=== PATIENT | female | born 1990 | race African-American/Black ===

== ENCOUNTER 2019-03-04 09:21 | Emergency (ER) | payer OTHER ==
[~2019-03-04] VITALS: Ht 160 cm; Wt 69.5 kg
[2019-03-04] MEDS ORDERED: PREN29TA4 PO (09:48)
[2019-03-04 10:19] LABS: BASO % 0.1 % (0.0-1.0); EOS # 0.1 10^3/uL (0.0-0.5); EOS % 0.7 % (0.0-3.0); HEMATOCRIT 37.2 % (36.0-47.0); LYMPH # 2.6 10^3/uL (1.5-5.0); LYMPH % 38.3 % (24.0-44.0); MEAN CORPUSCULAR HEMOGLOBIN 30.2 pg (27.0-33.0); MEAN CORPUSCULAR HGB CONC 32.3 g/dl (32.0-36.5); MEAN CORPUSCULAR VOLUME 93.5 fl (80.0-96.0); MONO # 0.5 10^3/uL (0.0-0.8); MONO % 6.8 % (0.0-5.0); NEUTROPHILS # 3.6 10^3/uL (1.5-8.5); NEUTROPHILS % 53.8 % (36.0-66.0); PLATELET COUNT, AUTOMATED 250 10^3/uL (150-450); RED BLOOD COUNT 3.98 10^6/uL (4.00-5.40); WHITE BLOOD COUNT 6.8 10^3/uL (4.0-10.0)
[2019-03-04 10:44] LABS: BLOOD UREA NITROGEN 7 MG/DL (7-18); CALCIUM LEVEL 9.4 MG/DL (8.5-10.1); CARBON DIOXIDE LEVEL 25 MEQ/L (21-32); CHLORIDE LEVEL 107 MEQ/L (98-107); CREATININE FOR GFR 0.71 MG/DL (0.55-1.30); GLOMERULAR FILTRATION RATE > 60.0 (>60); GLUCOSE, FASTING 64 MG/DL (70-100); POTASSIUM SERUM 4.6 MEQ/L (3.5-5.1); SODIUM LEVEL 139 MEQ/L (136-145)
--- NOTE | 2019-03-04 11:23 | REP ---
FIRST TRIMESTER ULTRASOUND: Real-time sonographic evaluation of the gravid uterus is performed utilizing transabdominal technique. There is a single living intrauterine gestation. Estimated gestational age 10 weeks 3 days based on a crown-rump length of 35 mm, EDC 09/27/2019. heart rate is 182 beats per minute. There is no subchorionic hemorrhage. Right ovary is normal. Left ovary demonstrates a cyst which appears anechoic 5.3 x 4.0 x 4.6 cm. There is no torsion bilaterally with duplex Doppler evaluation. Electronically Signed by Walter Negro MD 03/04/2019 12:03 P
[2019-03-04] MEDS ORDERED: MACR100C43 PO (12:03)
[2019-03-04 12:18] LABS: CHLAMYDIA DNA AMPLIFICATION NEGATIVE (NEGATIVE); GC DNA AMPLIFICATION NEGATIVE (NEGATIVE)
[2019-03-04] MEDS ORDERED: ACETAMINOPHEN TAB 650MG DOSE (2X325MG) PO ONE (12:30)
[2019-03-04 12:35] VITALS: BP 110/56
== END 2019-03-04 12:37 | disposition home or self-care (01) ==
LOC: M ED 09:21
DX: O23.41 Unspecified infection of urinary tract in pregnancy, first trimester (principal); Z3A.10 10 weeks gestation of pregnancy

== ENCOUNTER 2019-03-10 10:11 | Emergency (ER) | payer OTHER ==
[~2019-03-10] VITALS: Ht 160 cm; Wt 71.4 kg
[~2019-03-10 10:11] MED LIST: MACR100C43 PO; PREN29TA4 PO
[2019-03-10] MEDS ORDERED: NS 1,000 ML IV ONE (11:15)
[2019-03-10] MEDS ORDERED: ONDANSETRON 4MG/2ML VIAL (J2405) IV ONE (11:15)
[2019-03-10] MEDS ORDERED: ACETAMINOPHEN TAB 650MG DOSE (2X325MG) PO ONE (11:15)
[2019-03-10] MEDS ORDERED: ACET1TAB55 PO (11:17)
[2019-03-10 11:41] LABS: BASO % 0.3 % (0.0-1.0); EOS # 0.1 10^3/uL (0.0-0.5); EOS % 1.7 % (0.0-3.0); HEMATOCRIT 37.7 % (36.0-47.0); HEMOGLOBIN 12.4 g/dl (12.0-15.5); LYMPH # 2.6 10^3/uL (1.5-5.0); LYMPH % 32.7 % (24.0-44.0); MEAN CORPUSCULAR HEMOGLOBIN 30.2 pg (27.0-33.0); MEAN CORPUSCULAR HGB CONC 32.9 g/dl (32.0-36.5); MONO # 0.5 10^3/uL (0.0-0.8); MONO % 6.9 % (0.0-5.0); NEUTROPHILS # 4.6 10^3/uL (1.5-8.5); NEUTROPHILS % 58.1 % (36.0-66.0); PLATELET COUNT, AUTOMATED 237 10^3/uL (150-450); WHITE BLOOD COUNT 7.8 10^3/uL (4.0-10.0)
[2019-03-10 12:39] LABS: ALBUMIN 3.2 GM/DL (3.2-5.2); ALT/SGPT 21 U/L (12-78); BILIRUBIN,DIRECT < 0.1 MG/DL (0.0-0.2); BILIRUBIN,TOTAL 0.3 MG/DL (0.2-1.0); BLOOD UREA NITROGEN 10 MG/DL (7-18); CALCIUM LEVEL 8.8 MG/DL (8.5-10.1); CARBON DIOXIDE LEVEL 25 MEQ/L (21-32); CHLORIDE LEVEL 103 MEQ/L (98-107); CREATININE FOR GFR 0.72 MG/DL (0.55-1.30); GLOMERULAR FILTRATION RATE > 60.0 (>60); GLUCOSE, FASTING 79 MG/DL (70-100); HCG, SERUM QUANTITATIVE 76721 MIU/ML; LIPASE 134 U/L (73-393); POTASSIUM SERUM 4.7 MEQ/L (3.5-5.1); SODIUM LEVEL 136 MEQ/L (136-145); TOTAL PROTEIN 7.4 GM/DL (6.4-8.2)
--- NOTE | 2019-03-10 13:45 | REP ---
FIRST TRIMESTER ULTRASOUND: Real-time sonographic evaluation of the gravid uterus performed. There is a single living intrauterine gestation with an estimated gestational age 11 weeks 3 days based on crown-rump length of 46 mm, EDC 09/26/2019. heart rate 168 beats per minute. There is no subchorionic hemorrhage. Cystic structure of the left ovary measures 4.7 x 3.6 x 4.3 cm. This may represent a prominent corpus luteum. On the study of 03/31/2019, it measured 5.3 x 4.0 x 4.6 cm. There is no torsion of either ovary, blood flow is seen in each ovary with duplex Doppler evaluation. Electronically Signed by Walter Negro MD 03/10/2019 03:53 P
--- NOTE | 2019-03-10 13:47 | REP ---
RENAL ULTRASOUND: Real-time sonographic evaluation of kidneys performed. Kidneys are normal in size and echotexture, right kidney measuring 10.5 x 5.7 x 4.2 cm and left kidney 10.6 x 5.8 x 4.9 cm. There is no hydronephrosis or definite renal stone bilaterally. Urinary bladder is mildly distended and grossly unremarkable. IMPRESSION: No hydronephrosis or nephrolithiasis sonographically. Electronically Signed by Walter Negro MD 03/10/2019 03:53 P
[2019-03-10 14:45] LABS: CHLAMYDIA DNA AMPLIFICATION NEGATIVE (NEGATIVE); GC DNA AMPLIFICATION NEGATIVE (NEGATIVE)
[2019-03-10] MEDS ORDERED: CYCLOBENZAPRINE 5MG TABLET PO ONE (15:15)
[2019-03-10] MEDS ORDERED: CYCL5TAB PO (15:21)
[2019-03-10] MEDS ORDERED: ONDA4TAB6 PO (15:21)
[2019-03-10] MEDS ORDERED: FLAG500T PO (15:21)
[2019-03-10 15:46] VITALS: BP 100/55
== END 2019-03-10 15:53 | disposition home or self-care (01) ==
LOC: M ED 10:11
DX: O23.591 Infection of other part of genital tract in pregnancy, first trimester (principal); N83.202 Unspecified ovarian cyst, left side; O26.891 Other specified pregnancy related conditions, first trimester; N76.0 Acute vaginitis; Z3A.11 11 weeks gestation of pregnancy; O34.81 Maternal care for other abnormalities of pelvic organs, first trimester
CPT/HCPCS: 36415; 76775; 76801; 80048; 80076; 81001; 83690; 84702; 85025; 87210; 87661; 93976; 96361; 96374; 99284; J2405

== ENCOUNTER 2019-04-14 10:12 | Emergency (ER) | payer OTHER ==
[~2019-04-14] VITALS: Ht 160 cm; Wt 74.1 kg
[~2019-04-14 10:12] MED LIST changes: +ACET1TAB55 PO; +CYCL5TAB PO; +FLAG500T PO; +ONDA4TAB6 PO
[2019-04-14 11:13] LABS: BASO % 0.1 % (0.0-1.0); EOS # 0.1 10^3/uL (0.0-0.5); EOS % 0.7 % (0.0-3.0); HEMATOCRIT 34.4 % (36.0-47.0); HEMOGLOBIN 11.5 g/dl (12.0-15.5); LYMPH # 3.2 10^3/uL (1.5-5.0); MEAN CORPUSCULAR HEMOGLOBIN 31.2 pg (27.0-33.0); MEAN CORPUSCULAR HGB CONC 33.4 g/dl (32.0-36.5); MEAN CORPUSCULAR VOLUME 93.2 fl (80.0-96.0); MONO # 0.5 10^3/uL (0.0-0.8); MONO % 5.6 % (0.0-5.0); NEUTROPHILS # 4.7 10^3/uL (1.5-8.5); NEUTROPHILS % 55.1 % (36.0-66.0); PLATELET COUNT, AUTOMATED 217 10^3/uL (150-450); RED BLOOD COUNT 3.69 10^6/uL (4.00-5.40); WHITE BLOOD COUNT 8.5 10^3/uL (4.0-10.0)
[2019-04-14] MEDS ORDERED: NS 1,000 ML IV ONE (11:15)
[2019-04-14] MEDS ORDERED: ACETAMINOPHEN 325 MG TAB PO ONE (11:15)
[2019-04-14] MEDS ORDERED: ONDANSETRON 4MG/2ML VIAL (J2405) IV ONE (11:15)
[2019-04-14 11:58] LABS: ALT/SGPT 14 U/L (12-78); BILIRUBIN,DIRECT < 0.1 MG/DL (0.0-0.2); BILIRUBIN,TOTAL 0.2 MG/DL (0.2-1.0); BLOOD UREA NITROGEN 9 MG/DL (7-18); CALCIUM LEVEL 8.8 MG/DL (8.5-10.1); CARBON DIOXIDE LEVEL 21 MEQ/L (21-32); CHLORIDE LEVEL 107 MEQ/L (98-107); CREATININE FOR GFR 0.69 MG/DL (0.55-1.30); GLOMERULAR FILTRATION RATE > 60.0 (>60); GLUCOSE, FASTING 85 MG/DL (70-100); HCG, SERUM QUANTITATIVE 27999 MIU/ML; LIPASE 114 U/L (73-393); POTASSIUM SERUM 3.7 MEQ/L (3.5-5.1); SODIUM LEVEL 136 MEQ/L (136-145); TOTAL PROTEIN 7.3 GM/DL (6.4-8.2)
[2019-04-14] MEDS ORDERED: KEFL500C17 PO (13:05)
[2019-04-14 13:15] VITALS: BP 121/69
--- NOTE | 2019-04-14 14:00 | REP ---
OB ULTRASOUND: Real-time sonographic evaluation of gravid uterus performed. There is a single living intrauterine gestation, estimated gestational age 16 weeks 2 days based on the first ultrasound, EDC 09/27/2019. Today's measurements indicate appropriate growth. BPD 34 mm = 16 weeks 4 days, 60th percentile HC 123 mm = 16 weeks 1 day, 46th percentile AC 95 mm = 15 weeks 4 days, 31st percentile Femur length 19 mm = 15 weeks 4 days, 28th percentile HC/AC ratio 1.31 is slightly above normal range of 1.09 to 1.29. Estimated weight 131 grams, 20th percentile. Cervix is closed and measures 3.6 cm in length. heart rate 150 beats per minute. position vertex. Placenta is anterior and grade 0 with no previa or abruption. Amniotic fluid within normal limits. Complex cystic structure in the left ovary measures 3.5 x 2.9 x 2.6 cm, which may represent a corpus luteum. There is no torsion. Electronically Signed by Walter Negro MD 04/14/2019 06:06 P
== END 2019-04-14 13:16 | disposition home or self-care (01) ==
LOC: M ED 10:12
DX: O26.899 Other specified pregnancy related conditions, unspecified trimester (principal); M54.5 Low back pain; O23.42 Unspecified infection of urinary tract in pregnancy, second trimester; Z3A.15 15 weeks gestation of pregnancy
CPT/HCPCS: 76811; 80048; 80076; 81001; 83690; 84702; 85025; 87088; 87186; 93976; 96361; 96374; 99284; J2405

== ENCOUNTER 2019-05-01 13:01 | Emergency (ER) | payer OTHER ==
[~2019-05-01] VITALS: Ht 160 cm; Wt 77.6 kg
[~2019-05-01 13:01] MED LIST changes: +KEFL500C17 PO
[2019-05-01] MEDS ORDERED: CLIN150C14 (13:08)
[2019-05-01 14:47] LABS: BASO % 0.1 % (0.0-1.0); EOS # 0.1 10^3/uL (0.0-0.5); EOS % 0.6 % (0.0-3.0); HEMOGLOBIN 10.8 g/dl (12.0-15.5); LYMPH # 2.8 10^3/uL (1.5-5.0); LYMPH % 30.5 % (24.0-44.0); MEAN CORPUSCULAR HEMOGLOBIN 31.2 pg (27.0-33.0); MEAN CORPUSCULAR HGB CONC 32.7 g/dl (32.0-36.5); MEAN CORPUSCULAR VOLUME 95.4 fl (80.0-96.0); MONO # 0.7 10^3/uL (0.0-0.8); MONO % 7.4 % (0.0-5.0); NEUTROPHILS # 5.6 10^3/uL (1.5-8.5); NEUTROPHILS % 60.5 % (36.0-66.0); PLATELET COUNT, AUTOMATED 211 10^3/uL (150-450); RED BLOOD COUNT 3.46 10^6/uL (4.00-5.40); WHITE BLOOD COUNT 9.2 10^3/uL (4.0-10.0)
[2019-05-01 15:16] LABS: BLOOD UREA NITROGEN 6 MG/DL (7-18); CARBON DIOXIDE LEVEL 24 MEQ/L (21-32); CHLORIDE LEVEL 104 MEQ/L (98-107); CREATININE FOR GFR 0.62 MG/DL (0.55-1.30); GLOMERULAR FILTRATION RATE > 60.0 (>60); GLUCOSE, FASTING 73 MG/DL (70-100); POTASSIUM SERUM 4.1 MEQ/L (3.5-5.1); SODIUM LEVEL 134 MEQ/L (136-145)
[2019-05-01] MEDS: ONDANSETRON 4 MG ORAL DISINTEGRATING TAB (Q0162 PER 1MG) PO ONE (16:31)
[2019-05-01] MEDS ORDERED: PROC1AER16 PR (17:08)
[2019-05-01] MEDS ORDERED: ONDA4TAB6 PO (17:08)
--- NOTE | 2019-05-01 17:20 | REP ---
RENAL ULTRASOUND: Real-time sonographic evaluation of the kidneys are performed. The kidneys are normal in size and echotexture, right kidney measuring 10.2 x 5.9 x 4.3 cm and left kidney 10.3 x 3.9 x 5.5 cm. There is no hydronephrosis or renal mass. Urinary bladder is not well distended. The patient is . The heart rate is 157 beats per minute. IMPRESSION: No hydronephrosis. Electronically Signed by Walter Negro MD 05/02/2019 12:40 P
[2019-05-01 17:23] VITALS: BP 122/58
== END 2019-05-01 17:24 | disposition home or self-care (01) ==
LOC: M ED 13:01
DX: O23.42 Unspecified infection of urinary tract in pregnancy, second trimester (principal); O99.612 Diseases of the digestive system complicating pregnancy, second trimester; K64.9 Unspecified hemorrhoids; Z3A.18 18 weeks gestation of pregnancy; Z79.2 Long term (current) use of antibiotics
CPT/HCPCS: 36415; 76775; 80048; 81001; 85025; 99284; Q0162

== ENCOUNTER 2019-05-05 09:16 | Emergency (ER) | payer OTHER ==
[~2019-05-05] VITALS: Ht 160 cm; Wt 75.8 kg
[~2019-05-05 09:16] MED LIST changes: +CLIN150C14; +PROC1AER16 PR
[2019-05-05] MEDS ORDERED: METOCLOPRAMIDE INJ 10MG/2ML VIAL (J2765) IV ONE (11:15)
[2019-05-05] MEDS ORDERED: NS 1,000 ML IV ONE (11:15)
[2019-05-05 11:23] LABS: INFLUENZA A AMPLIFICATION NEGATIVE (NEGATIVE); INFLUENZA B AMPLIFICATION POSITIVE (NEGATIVE)
[2019-05-05 11:43] LABS: BASO % 0.2 % (0.0-1.0); EOS % 0.3 % (0.0-3.0); HEMATOCRIT 32.1 % (36.0-47.0); HEMOGLOBIN 10.5 g/dl (12.0-15.5); LYMPH # 1.5 10^3/uL (1.5-5.0); MEAN CORPUSCULAR HEMOGLOBIN 31.1 pg (27.0-33.0); MEAN CORPUSCULAR HGB CONC 32.7 g/dl (32.0-36.5); MONO # 0.9 10^3/uL (0.0-0.8); MONO % 13.7 % (0.0-5.0); NEUTROPHILS % 61.3 % (36.0-66.0); PLATELET COUNT, AUTOMATED 191 10^3/uL (150-450); RED BLOOD COUNT 3.38 10^6/uL (4.00-5.40); WHITE BLOOD COUNT 6.4 10^3/uL (4.0-10.0)
[2019-05-05 12:23] LABS: ALBUMIN 2.9 GM/DL (3.2-5.2); ALT/SGPT 17 U/L (12-78); BILIRUBIN,DIRECT < 0.1 MG/DL (0.0-0.2); BILIRUBIN,TOTAL 0.7 MG/DL (0.2-1.0); BLOOD UREA NITROGEN 6 MG/DL (7-18); CALCIUM LEVEL 8.5 MG/DL (8.5-10.1); CARBON DIOXIDE LEVEL 26 MEQ/L (21-32); CHLORIDE LEVEL 106 MEQ/L (98-107); CREATININE FOR GFR 0.66 MG/DL (0.55-1.30); GLOMERULAR FILTRATION RATE > 60.0 (>60); GLUCOSE, FASTING 76 MG/DL (70-100); HCG, SERUM QUANTITATIVE 10775 MIU/ML; LIPASE 106 U/L (73-393); POTASSIUM SERUM 3.7 MEQ/L (3.5-5.1); SODIUM LEVEL 137 MEQ/L (136-145); TOTAL PROTEIN 6.6 GM/DL (6.4-8.2)
[2019-05-05 14:20] LABS: APPEARANCE, URINE HAZY (CLEAR); BACTERIA, URINE AUTO 1+ (NEGATIVE); BILIRUBIN, URINE AUTO NEGATIVE (NEGATIVE); BLOOD, URINE BLOOD NEGATIVE (NEGATIVE); COLOR, URINE YELLOW (YELLOW); GLUCOSE, URINE (UA) AUTO NEGATIVE (NEGATIVE); KETONE, URINE AUTO 1+ mg/dL (NEGATIVE); LEUKOCYTE ESTERASE, URINE AUTO NEGATIVE (NEGATIVE); MUCUS, URINE SMALL (NEGATIVE); NITRITE, URINE AUTO NEGATIVE (NEGATIVE); PROTEIN, URINE AUTO NEGATIVE (NEGATIVE); RBC, URINE AUTO 1 /HPF (0-3); SPECIFIC GRAVITY URINE AUTO 1.023 (1.002-1.035); SQUAMOUS EPITHELIAL CELL UR AU 6 /HPF (0-6); WBC, URINE AUTO 1 /HPF (0-3)
[2019-05-05] MEDS ORDERED: OSELTAMIVIR PHOSPHATE 75 MG CAP (TAMIFLU) PO ONE (14:30)
[2019-05-05] MEDS ORDERED: OSEL75CA PO (14:30)
[2019-05-05 14:46] VITALS: BP 130/68
== END 2019-05-05 15:05 | disposition home or self-care (01) ==
LOC: M ED 09:16
DX: O98.512 Other viral diseases complicating pregnancy, second trimester (principal); J10.1 Influenza due to other identified influenza virus with other respiratory manifestations; Z79.899 Other long term (current) drug therapy; Z3A.18 18 weeks gestation of pregnancy
CPT/HCPCS: 80048; 80076; 81001; 83690; 84702; 85025; 87086; 87502; 87880; 96361; 96374; 99284; J2765

== ENCOUNTER 2019-06-28 14:39 | Emergency (ER) | payer OTHER ==
[~2019-06-28] VITALS: Ht 160 cm; Wt 81.8 kg
[~2019-06-28 14:39] MED LIST changes: +OSEL75CA PO
[2019-06-28] MEDS ORDERED: CYCL5TAB PO (14:51)
[2019-06-28] MEDS ORDERED: FERR325T18 PO (14:51)
[2019-06-28] MEDS ORDERED: VITA500T9 PO (14:51)
[2019-06-28] MEDS ORDERED: AMOX500C PO (14:51)
[2019-06-28 16:11] LABS: BASO % 0.2 % (0.0-1.0); EOS # 0.1 10^3/uL (0.0-0.5); EOS % 0.6 % (0.0-3.0); HEMATOCRIT 30.4 % (36.0-47.0); HEMOGLOBIN 10.1 g/dl (12.0-15.5); LYMPH # 2.9 10^3/uL (1.5-5.0); LYMPH % 29.2 % (24.0-44.0); MEAN CORPUSCULAR HEMOGLOBIN 31.5 pg (27.0-33.0); MEAN CORPUSCULAR HGB CONC 33.2 g/dl (32.0-36.5); MEAN CORPUSCULAR VOLUME 94.7 fl (80.0-96.0); MONO # 0.7 10^3/uL (0.0-0.8); MONO % 6.8 % (0.0-5.0); NEUTROPHILS # 6.1 10^3/uL (1.5-8.5); NEUTROPHILS % 62.5 % (36.0-66.0); PLATELET COUNT, AUTOMATED 216 10^3/uL (150-450); RED BLOOD COUNT 3.21 10^6/uL (4.00-5.40); WHITE BLOOD COUNT 9.8 10^3/uL (4.0-10.0)
[2019-06-28 16:44] LABS: ALBUMIN 2.9 GM/DL (3.2-5.2); ALT/SGPT 17 U/L (12-78); AMYLASE 105 U/L (25-115); BILIRUBIN,DIRECT < 0.1 MG/DL (0.0-0.2); BILIRUBIN,TOTAL 0.2 MG/DL (0.2-1.0); BLOOD UREA NITROGEN 6 MG/DL (7-18); CALCIUM LEVEL 8.5 MG/DL (8.5-10.1); CARBON DIOXIDE LEVEL 23 MEQ/L (21-32); CHLORIDE LEVEL 106 MEQ/L (98-107); CREATININE FOR GFR 0.61 MG/DL (0.55-1.30); GLOMERULAR FILTRATION RATE > 60.0 (>60); GLUCOSE, FASTING 71 MG/DL (70-100); LIPASE 115 U/L (73-393); POTASSIUM SERUM 4.1 MEQ/L (3.5-5.1); SODIUM LEVEL 136 MEQ/L (136-145); TOTAL PROTEIN 6.8 GM/DL (6.4-8.2)
[2019-06-28] MEDS ORDERED: FLUCONAZOLE 100 MG TAB PO ONE (17:30)
--- NOTE | 2019-06-28 17:48 | REP ---
Clinical: Cough and dyspnea. Comparison: None. Findings: Mediastinum and cardiac silhouette are normal. Lung antony are relatively clear and without discrete focal consolidation, effusion, or pneumothorax. Skeletal structures are intact. Impression: No focal consolidation or effusion. Electronically Signed by Cleveland Gonzalez MD 06/28/2019 05:40 P
[2019-06-28 18:22] LABS: APPEARANCE, URINE HAZY (CLEAR); BACTERIA, URINE AUTO 1+ (NEGATIVE); BILIRUBIN, URINE AUTO NEGATIVE (NEGATIVE); BLOOD, URINE BLOOD NEGATIVE (NEGATIVE); COLOR, URINE STRAW (YELLOW); GLUCOSE, URINE (UA) AUTO NEGATIVE (NEGATIVE); KETONE, URINE AUTO 1+ mg/dL (NEGATIVE); LEUKOCYTE ESTERASE, URINE AUTO 3+ (NEGATIVE); MUCUS, URINE SMALL (NEGATIVE); NITRITE, URINE AUTO NEGATIVE (NEGATIVE); PROTEIN, URINE AUTO NEGATIVE (NEGATIVE); RBC, URINE AUTO 9 /HPF (0-3); SPECIFIC GRAVITY URINE AUTO 1.006 (1.002-1.035); SQUAMOUS EPITHELIAL CELL UR AU 3 /HPF (0-6); UROBILINOGEN, URINE AUTO 0.2 mg/dL (0.0-2.0); WBC, URINE AUTO 3 /HPF (0-3)
[2019-06-28 18:41] VITALS: BP 129/78
--- NOTE | 2019-06-28 20:00 | CR.PDOC ---
General Date of Consultation: Jun 28, 2019 Consultation REASON FOR CONSULTATION/CHIEF COMPLAINT: Hip pain and . HISTORY OF PRESENT ILLNESS: Patient is a at 26wks . X3days of constant sharp, stretching pain throughout back and lower hips and around where baby is. Pain worsens with movement and movement. x2 days of UTI and just began Augmentin. +dysuria without hematuria. No fever but has mild cough and SOB. [place] No vaginal discharge. No vaginal bleeding. Good movement. States she tries to hydrate. ALLERGIES: Please see below. HOME MEDICATIONS: Please see below. PAST MEDICAL HISTORY: 1. None PAST SURGICAL HISTORY: 1. x2 deliveries FAMILY HISTORY: N/C SOCIAL HISTORY: Tobacco use:None ETOH: None Illicit drug use: None REVIEW OF SYSTEMS: CONSTITUTIONAL: As above. HEENT: Mild rhinorrhea. CARDIOVASCULAR: None. RESPIRATORY: As above. GENITOURINARY: As above. MUSCULOSKELETAL: As above. GASTROINTESTINAL: + constipation. SKIN: None. NEUROLOGICAL: None. PSYCHIATRIC: None. ENDOCRINE: None. HEMATOLOGIC/LYMPHATIC: None. ALLERGIC/IMMUNOLOGIC: None. PHYSICAL EXAMINATION: VITAL SIGNS: Please see below. GENERAL APPEARANCE: Slightly uncooperative. Need to tell patient multiple times to do things. HEENT: Membranes slightly dry. ABDOMEN: Nontender. Gravid. FH approximately 25wks. FHT: 140s, no decels, no contractions. SVE: Clumpy white discharge, cervix thick and closed EXTREMITIES: No edema and nontender. LABORATORY DATA: Please see below. ASSESSMENT/PLAN: 1. No labor. 2. Likely MSK. 3. Hcristina vaginitis, recommend Diflucan 150mg PO x1. 4. Recommend Covid-19 work up and precautions 5. Fetus reassuring 6. Complete UTI treatment Vital Signs/I&O Vital Signs Date Time Temp Pulse Resp B/P (MAP) Pulse Ox O2 Delivery O2 Flow Rate FiO2 06/28/19 18:41 98.5 64 15 129/78 (95) 99 Room Air Laboratory Data Labs 24H Laboratory Tests 2 06/28/19 15:49: Immature Granulocyte % (Auto) 0.7, Neutrophils (%) (Auto) 62.5, Lymphocytes (%) (Auto) 29.2, Monocytes (%) (Auto) 6.8H, Eosinophils (%) (Auto) 0.6, Basophils (%) (Auto) 0.2, Neutrophils # (Auto) 6.1, Lymphocytes # (Auto) 2.9, Monocytes # (Auto) 0.7, Eosinophils # (Auto) 0.1, Basophils # (Auto) 0.0, Nucleated Red Blood Cells % (auto) 0.2H, Anion Gap 7L, Glomerular Filtration Rate > 60.0, Calcium Level 8.5, Total Bilirubin 0.2, Direct Bilirubin < 0.1, Aspartate Amino Transf (AST/SGOT) 20, Alanine Aminotransferase (ALT/SGPT) 17, Alkaline Phosphatase 54, Total Protein 6.8, Albumin 2.9L, Albumin/Globulin Ratio 0.74L, Amylase Level 105, Lipase 115 06/28/19 16:49: Urine Color STRAW, Urine Appearance HAZY, Urine pH 7.0, Urine Specific [place] 1.006, Urine Protein NEGATIVE, Urine Glucose (Auto)(UA) NEGATIVE, Urine Ketones (Auto) 1+H, Urine Blood NEGATIVE, Urine Nitrite NEGATIVE, Urine Bilirubin NEGATIVE, Urine Urobilinogen 0.2, Urine Leukocyte Esterase (Auto) 3+H, Urine WBC (Auto) 3, Urine RBC (Auto) 9H, Urine Hyaline Casts (Auto) 0, Urine Bacteria (Auto) 1+H, Urine Squamous Epithelial Cells 3, Urine Mucus (Auto) SMALL, Urine Sperm (Auto) CBC/BMP Laboratory Tests 06/28/19 15:49 Microbiology Microbiology 06/28/19 Coronavirus COVID-19 PCR (JOLIE), Received Pending 06/28/19 Respiratory Panel (PCR) - Final, Complete Allergies Coded Allergies: No Known Allergies (Unverified , 03/04/19) Home Medications Scheduled Acetaminophen (Acetaminophen) 325 Mg Tablet, 2 TAB PO DAILY for pain or fever for 30 Days, #30 (Reported) Amoxicillin (Amoxicillin) 500 Mg Capsule, 500 NG PO Q8H, (Reported) Ascorbic Acid (Vitamin C) 500 Mg Tablet, 500 MG PO BID, (Reported) Ferrous Sulfate (Ferrous Sulfate) 325 Mg Tablet, 325 MG PO BID, (Reported) Hydrocortisone/Pramoxine (Proctofoam-Hc 1%-1% Foam) 10 Gm Foam, 1 APLCTR CA BID, #10 Prenat 115/Iron Fum/Folic/Dss ( 19 Tablet) 1 Each Tablet, 1 TAB PO DAILY for 30 Days, #30 (Reported) Scheduled PRN Cyclobenzaprine HCl (Cyclobenzaprine HCl) 5 Mg Tablet, PO PRN PRN for pain, (Reported) Ondansetron (Ondansetron Odt) 4 Mg Tab.rapdis, 4 MG PO Q6-8HP PRN for nausea /vomiting for 4 Days, #8 Pia Morrison MD Jun 28, 2019 20:00
== END 2019-06-28 18:42 | disposition home or self-care (01) ==
LOC: M ED 14:39
DX: O99.612 Diseases of the digestive system complicating pregnancy, second trimester (principal); Z20.828 Contact with and (suspected) exposure to other viral communicable diseases; O99.512 Diseases of the respiratory system complicating pregnancy, second trimester; Z87.448 Personal history of other diseases of urinary system; Z3A.26 26 weeks gestation of pregnancy; Z79.899 Other long term (current) drug therapy
CPT/HCPCS: 71045; 80048; 80076; 81001; 82150; 83690; 85025; 87486; 87581; 87633; 87798; 87880; 99284; U0002

== ENCOUNTER → 2020-04-28 | Outpatient (CLI) | payer OTHER ==
[~2020-04-28] MED LIST changes: +AMOX500C PO; -CLIN150C14; +CLIN150C15; +FERR325T18 PO; +GASTROGRAFIN SOLUTION 30ML (Q9963) As Ordered ONE; +ISOVUE-370 76% 100ML VIAL As Ordered ONE; +VITA500T9 PO
--- NOTE | 2020-04-29 06:18 | REP ---
INDICATION: ABD PAIN. COMPARISON: None TECHNIQUE: Axial contrast-enhanced images from the lung bases to the pubic symphysis using oral and 100 cc Isovue 370 intravenous contrast material. Precontrast images of the abdomen along with coronal and sagittal reformations obtained. This CT examination was performed using the following dose reduction techniques: Automated exposure control, adjustment of mA and/or kv according to the patient's size, and the use of iterative reconstruction technique. FINDINGS: Lung bases are clear. Visualized heart and pericardium normal. Evidence for recent surgery with anterior midline ventral surgical scar noted. Liver, spleen, pancreas, gallbladder, bilateral adrenal glands and kidneys are normal. The enteric system including stomach, small, and large bowel appears normal. No evidence for obstruction or acute inflammatory process. Normal terminal ileum and appendix are identified in the right lower quadrant. Pelvis demonstrates normal bladder and age-appropriate uterus/adnexa. No ascites. No free air. No intraperitoneal or retroperitoneal adenopathy. Abdominal aorta and vasculature appear normal. Musculoskeletal structures are intact and without acute osseous abnormality. IMPRESSION: No acute abdominopelvic pathology appreciated. No ascites. No free air. No adenopathy. No focal inflammatory stranding. Recent surgical incision along the anterior midline abdomen. <Electronically signed by Cleveland Gonzalez > 04/29/20 0614
== END ==
LOC: M RAD 12:55
PROVIDERS: ATTEND Surgery
DX: R10.84 Generalized abdominal pain (principal)
CPT/HCPCS: 74178; Q9963; Q9967

== ENCOUNTER 2020-06-23 05:40 | Emergency (ER) | payer OTHER ==
[~2020-06-23] VITALS: Ht 160 cm; Wt 82.2 kg
[2020-06-23 05:40] VITALS: BP 121/77
[~2020-06-23 05:40] MED LIST changes: -GASTROGRAFIN SOLUTION 30ML (Q9963) As Ordered ONE; -ISOVUE-370 76% 100ML VIAL As Ordered ONE
[2020-06-23] MEDS ORDERED: IBUPROFEN 800 MG TAB PO ONE (06:25)
[2020-06-23] MEDS ORDERED: ACETAMINOPHEN 500 MG TAB PO ONE (06:25)
== END 2020-06-23 06:45 | disposition home or self-care (01) ==
LOC: M ED 05:40
DX: R50.9 Fever, unspecified (principal); R51.9 Headache, unspecified; M79.10 Myalgia, unspecified site; T50.Z95A Adverse effect of other vaccines and biological substances, initial encounter

== ENCOUNTER 2020-10-19 10:02 | Observation (INO) | payer OTHER ==
[~2020-10-19] VITALS: Ht 160 cm; Wt 83.0 kg
[~2020-10-19 10:02] MED LIST changes: +HEPARIN SOD (PORCINE) 5000UNITS/ML 1ML VIAL/SYRINGE SQ ONE; +LIDOCAINE 2% 100MG/5ML SDV (FOR ANES.) As Ordered ONE; +LR 1,000 ML IV ONE; +MIDAZOLAM INJ 2MG/2ML VIAL (J2250 PER 1MG) As Ordered ONE; +ONDANSETRON 4MG/2ML VIAL As Ordered ONE; +ROCURONIUM BROMIDE 50 MG/5 ML VIAL As Ordered ONE; +SUGAMMADEX SODIUM 500 MG/5 ML VIAL (BRIDION) As Ordered ONE; +ceFAZolin SOD 1 GM in D5W MINI-BAG PLUS 50 ML IV ONE; +dexameTHASONE 4 MG/ML 1ML VIAL (J1100 PER 1MG) As Ordered ONE; +fentaNYL 250 MCG/5 ML INJECTION (J3010) As Ordered ONE; +propofoL 200 MG/20 ML VIAL As Ordered ONE
[2020-10-19] MEDS ORDERED: GENTAMICIN SULF 80MG/2ML VIAL As Ordered ONE (10:42)
[2020-10-19] MEDS ORDERED: BUPIVACAINE LIPOSOME/PF 1.3% 20ML VIAL (13.3MG/ML)(EXPAREL)(C9290 PER1MG) As Ordered ONE (11:51)
[2020-10-19] MEDS ORDERED: ACETAMINOPHEN 1000MG 100ML IV BTL (OFIRMEV) (J0131 PER 10MG) As Ordered ONE (12:48)
[2020-10-19] MEDS ORDERED: ROCURONIUM BROMIDE 50 MG/5 ML VIAL As Ordered ONE (13:37)
[2020-10-19] MEDS ORDERED: HYDROmorphone HCL 2 MG/ML 1ML VIAL (J1170) As Ordered ONE (13:46)
--- NOTE | 2020-10-19 15:52 | POST-OPPD ---
Postoperative Procedure Note Date Of Procedure: Oct 19, 2020 PREOPERATIVE DIAGNOSIS: Panniculitis, scar contracture POSTOPERATIVE DIAGNOSIS: same FINDINGS: contracted c section scar, severe diathesis. PROCEDURE: Extended panniculectomy with rectus muscle plication. SURGEON: Dr Engel SPECIMENS: General ESTIMATED BLOOD LOSS: 75 cc ANESTHESIA: general REPLACED: none DRAINS: 10 mm x 2 COMPLICATIONS: none POSTOPERATIVE CONDITION: stable JAYDE ENGEL DO Oct 19, 2020 15:52
--- NOTE | 2020-10-19 15:54 | ROOPDOC ---
[facility] Report Of Operation Report of Operation DATE OF PROCEDURE: 10/19/20 PREOPERATIVE DIAGNOSIS: Panniculitis, scar contracture POSTOPERATIVE DIAGNOSIS: same FINDINGS: contracted c section scar, severe diathesis. PROCEDURE: Extended panniculectomy with rectus muscle plication. SURGEON: Dr Engel SPECIMENS: Veronica [id number] ESTIMATED BLOOD LOSS: 75 cc ANESTHESIA: general REPLACED: none DRAINS: 10 mm x 2 COMPLICATIONS: none POSTOPERATIVE CONDITION: stable DESCRIPTION OF PROCEDURE: Procedure: Procedure: This is a 30-year-old female status post weight loss and status post 3 pregnancies. Patient had 3 C-sections in the past which created a contracted Pfannenstiel incision scar which causing significant pain to the patient. Patient has excessive rectus muscle diathesis as well. Patient is scheduled for extended panniculectomy with rectus muscle plication. Risks benefits and alternatives discussed with the patient in details. Informed consent confirmed and preoperative holding area. Patient was marked in upright position. She was brought into the operating room, placed in supine position, preoperative antibiotics given, sequential stockings placed in the lower calves, and then general anesthesia is induced. Bowman catheter introduced in the bladder without any difficulties with yellow clear urine present. She was prepped and draped in the usual sterile fashion.Lower abdominal incision made 7 cm above the labial crease along patient's natural suprapubic crease. Incision carried out with 10 blade. Careful sharp dissection with electrocautery and PEEK cautery was done until the fascia of rectus muscle is identified. Following the musculoaponeurotic fascial plane superiorly, the abdominal skin and subcutaneous tissue are undermined. Vessels were identified throughout and either cauterized or suture ligated for hemostasis control. Infraumbilical flap was divided in the middle to aid the dissection. We continued our dissection until umbilicus was encountered. Rhomboid incision made around the umbilicus and dissection continued until xiphoid process superiorly and costal margins laterally. Rectus muscle evaluated and diathesis was identified 9 cm width at midline. Rectus muscle was plicated with 0 Vicryl sutures in interrupted fashion, followed by #1 PDS barbed running suture. Wound is irrigated with gentamicin and normal saline irrigation. Exparel block given into rectus muscle total 16 mL. Patient placed on placed in the reflex position and excess tissue which consists off abdominal skin and subcutaneous tissue was measured and resected using electrocautery. Total weight of the pannus 1025 g. Careful hemostasis was assured. The flap was realigned and tacked with clamps. We started closure of the midline incision with deep sutures of 0 Vicryl. Subcutaneous layer closure with 3-0 Monocryl sutures and Inosorb mago, than 3-0 Monocryl V lock suture used for subdermal closure. The mons pubis was realigned. We continued closing the lower abdominal incision with 0 Vicryl sutures for deep layer, followed by 3-0 Monocryl sutures for subcutaneous layer and Inosorb mago, than 3-0 Monocryl V lock suture used for subdermal closure. Two10 mm Syed-Rao drains were placed through lower abdominal incision and secured in place with 3-0 Mo nocryl sutures. New opening was created for the umbilical stump using electrocautery. The umbilicus was brought into view and sutured in place with interrupted 3-Monocryl, 4-0 Monocryl sutures and 5-0 plain gut sutures in the interrupted fashion. Remaining Exparel was given into the lower abdominal incision and the drain area. Prinio dressing applied to lower abdominal incision, Xeroform to umbilicus, and bulky dressing throughout. Abdominal binder applied. Patient extubated in the operating room without any difficulties and transferred to recovery room in stable condition.. JAYDE ENGEL DO Oct 19, 2020 15:54
[2020-10-19] MEDS ORDERED: ONDANSETRON 4MG/2ML VIAL IV PRN ×2 (15:55→16:00)
[2020-10-19] MEDS ORDERED: MORPHINE 4 MG/ML 1ML VIAL/SYRINGE (J2270) IV PRN (15:55)
[2020-10-19] MEDS ORDERED: PERCOCET 5MG/325MG TAB PO PRN (16:00)
[2020-10-19] MEDS ORDERED: fentaNYL 100 MCG/2 ML INJECTION (J3010) IV PRN (16:00)
[2020-10-19] MEDS ORDERED: LR 1,000 ML IV SCH (16:00)
[2020-10-19] MEDS ORDERED: METOCLOPRAMIDE INJ 10MG/2ML VIAL (J2765 PER 1) IV PRN (16:00)
[2020-10-19 17:00] VITALS: BP 153/82
[2020-10-19 17:01] VITALS: BP 153/82
[2020-10-19 17:15] VITALS: BP 140/84
[2020-10-19] MEDS: LR 1,000 ML IV SCH ×2 (17:36→20:25)
[2020-10-19 17:45] VITALS: BP 147/83
[2020-10-19] MEDS: ACETAMINOPHEN TAB 650MG DOSE (2X325MG) PO PRN (18:42)
[2020-10-19 18:45] VITALS: BP 164/98
[2020-10-19] MEDS: ceFAZolin SOD 1 GM in D5W MINI-BAG PLUS 50 ML IV SCH (20:16)
[2020-10-19 20:31] VITALS: BP 130/81
[2020-10-19] MEDS: PERCOCET 5MG/325MG TAB PO PRN (23:34)
[2020-10-20] MEDS: LR 1,000 ML IV SCH (03:39)
[2020-10-20] MEDS: ceFAZolin SOD 1 GM in D5W MINI-BAG PLUS 50 ML IV SCH ×2 (04:17→11:57)
[2020-10-20] MEDS: ACETAMINOPHEN TAB 650MG DOSE (2X325MG) PO PRN ×2 (04:20→11:58)
[2020-10-20 06:00] VITALS: BP 112/53
[2020-10-20] MEDS: PERCOCET 5MG/325MG TAB PO PRN (09:07)
--- NOTE | 2020-10-20 12:19 | IPNPDOC ---
Subjective General Date Seen: Oct 20, 2020 Subject Chief Complaint/History The patient is a 30-year-old female admitted with a reason for visit of Lower Abdominal Scar Hypertrophy, Panniculitis. Patient status post extended panniculectomy postop day 1. She is feeling well today, ambulated to the bathr oom. Tolerating diet, pain controlled. Current Medications Current Medications Current Medications Medications (Trade) Dose Ordered Sig/Kavya Route PRN Reason Start Time Stop Time Status Last Admin Dose Admin Acetaminophen (Tylenol Tab) 650 mg Q6H PRN PO MILD PAIN (PS 1-4) 10/19/20 15:55 10/20/20 11:58 Cefazolin Sodium 1 gm/Dextrose 50 ml @ 100 mls/hr Q8H IV 10/19/20 20:30 10/20/20 11:57 Fentanyl Citrate (Sublimaze) 25 mcg Q5MP PRN IV PAIN LEVEL 5-10 10/19/20 16:00 10/19/20 18:00 DC Lactated Ringer's 1,000 ml @ 75 mls/hr [id number] IV 10/19/20 15:55 10/20/20 09:14 DC 10/20/20 03:39 Lactated Ringer's 1,000 ml @ 100 mls/hr Q10H IV 10/19/20 16:00 10/19/20 18:00 DC Metoclopramide HCl (REGLAN INJection) 10 mg Q6HP PRN IV NAUSEA OR VOMITING 10/19/20 16:00 10/19/20 18:00 DC Morphine Sulfate (Morphine Sulfate Inj) 4 mg Q4HP PRN IV SEVERE PAIN (PS 8-10) 10/19/20 15:55 10/19/20 18:42 Ondansetron HCl (ZOFRAN INJection) 4 mg Q4H PRN IV NAUSEA OR VOMITING 10/19/20 15:55 Ondansetron HCl (ZOFRAN INJection) 4 mg Q4HP PRN IV NAUSEA OR VOMITING 10/19/20 16:00 10/19/20 18:00 DC Oxycodone/ Acetaminophen (Percocet 5mg/ 325mg Tablet) 1 tab ASDIRECTED PRN PO PAIN LEVEL 1-4 10/19/20 16:00 10/19/20 18:00 DC 10/19/20 16:35 Oxycodone/ Acetaminophen (Percocet 5mg/ 325mg Tablet) 1 tab Q4HP PRN PO PAIN LEVEL 4-7 10/19/20 15:55 10/20/20 09:07 Allergies Coded Allergies: No Known Allergies (Unverified , 10/11/20) Objective Physical Examination Examination GENERAL APPEARANCE:Patient seen, laying in bed, awake, alert, and oriented. Comfortable, in no acute distress. SKIN: Warm and moist. NECK: Supple, no thyromegaly. No obvious jugular venous distention. LUNGS: Clear to auscultation bilaterally. No wheezing appreciated. HEART: No chest wall abnormalities. Regular rate and rhythm with no murmurs appreciated. ABDOMEN: Abdomen is soft, non-tender, non-distended. Incision intact. Umbilicus viable. KURT drains with serosanguinous drainage. 55/65 cc/24hr each drain. EXTREMITIES: No edema identified. No calf tenderness. Vital Signs Vital Signs Date Time Temp Pulse Resp B/P (MAP) Pulse Ox O2 Delivery O2 Flow Rate FiO2 10/20/20 10:00 16 10/20/20 06:00 97.1 49 112/53 (72) 96 Room Air 10/19/20 16:00 2.0 I&Os I&O- Last 24 Hours up to 6 AM 10/20/20 05:59 Intake Total 2100 ml Output Total 1535 ml Balance 565 ml Impression Status post extended panniculectomy with rectus muscle plication postop day 1. Stable for discharge. Dressings changed today, instructions given to the patient. KURT drains to continue, monitor at home daily output. Continue with compression binder for edema control. Sleeping on 3 pillows and keep body flexed at all times. Follow-up with plastic surgery after discharge. Plan / VTE VTE Prophylaxis Ordered?: Yes JAYDE ENGEL DO Oct 20, 2020 12:19
[2020-10-20] MEDS ORDERED: PERCOCET PO (12:22)
== END 2020-10-20 16:00 | disposition home or self-care (01) ==
LOC: M SDC 10:02 → M MS5PR 15:54
PROVIDERS: ADMIT Plastic Surgery Surgery of the Hand; ATTEND Plastic Surgery Surgery of the Hand
DX: M54.06 Panniculitis affecting regions of neck and back, lumbar region (principal); M62.08 Separation of muscle (nontraumatic), other site; L90.5 Scar conditions and fibrosis of skin
CPT/HCPCS: 15830; 15847; 88300; 96365; 96366; 96375; C9290; J0131; J0690; J1100; J1170; J1580; J1644; J2250; J2270; J2405; J3010

== ENCOUNTER 2020-11-30 16:40 | Emergency (ER) | payer OTHER ==
[~2020-11-30] VITALS: Ht 160 cm; Wt 81.8 kg
[~2020-11-30 16:40] MED LIST changes: -CLIN150C15; +CLIN150C17; -HEPARIN SOD (PORCINE) 5000UNITS/ML 1ML VIAL/SYRINGE SQ ONE; -LIDOCAINE 2% 100MG/5ML SDV (FOR ANES.) As Ordered ONE; -LR 1,000 ML IV ONE; -MIDAZOLAM INJ 2MG/2ML VIAL (J2250 PER 1MG) As Ordered ONE; -ONDANSETRON 4MG/2ML VIAL As Ordered ONE; +PERCOCET PO; -ROCURONIUM BROMIDE 50 MG/5 ML VIAL As Ordered ONE; -SUGAMMADEX SODIUM 500 MG/5 ML VIAL (BRIDION) As Ordered ONE; -ceFAZolin SOD 1 GM in D5W MINI-BAG PLUS 50 ML IV ONE; -dexameTHASONE 4 MG/ML 1ML VIAL (J1100 PER 1MG) As Ordered ONE; -fentaNYL 250 MCG/5 ML INJECTION (J3010) As Ordered ONE; -propofoL 200 MG/20 ML VIAL As Ordered ONE
[2020-11-30 16:59] VITALS: BP 150/84
== END 2020-11-30 21:30 | disposition left against medical advice (07) ==
LOC: M ED 16:40
DX: Z53.21 Procedure and treatment not carried out due to patient leaving prior to being seen by health care provider (principal)

== ENCOUNTER 2021-06-14 16:08 | Emergency (ER) | payer OTHER ==
[~2021-06-14] VITALS: Ht 160 cm; Wt 77.3 kg
[2021-06-14 16:08] VITALS: BP 134/71
[2021-06-14] MEDS ORDERED: AMOX875T PO (17:36)
[2021-06-14] MEDS ORDERED: ALBUTEROL 90 MCG/ACT 8GM HFA INHALER INH ONE (17:55)
[2021-06-14] MEDS ORDERED: VENTAER INH (20:13)
[2021-06-14] MEDS ORDERED: PROAAER10 INH (20:13)
== END 2021-06-14 20:38 | disposition home or self-care (01) ==
LOC: M ED 16:08
DX: J06.9 Acute upper respiratory infection, unspecified (principal); J01.90 Acute sinusitis, unspecified; B34.2 Coronavirus infection, unspecified

== ENCOUNTER 2021-11-24 06:02 | Observation (INO) | payer OTHER ==
[~2021-11-24] VITALS: Ht 160 cm; Wt 82.3 kg
[2021-11-24] VITALS (7 sets, daily range): BP systolic 128–148; BP diastolic 70–93
[~2021-11-24 06:02] MED LIST changes: +AMOX875T PO; +PROAAER10 INH; +VENTAER INH
[2021-11-24] MEDS ORDERED: LR 1,000 ML IV SCH ×2 (06:30→11:20)
[2021-11-24] MEDS ORDERED: BUPIVACAINE LIPOSOME/PF 1.3% 20ML VIAL (13.3MG/ML)(EXPAREL) As Ordered ONE (06:49)
[2021-11-24] MEDS ORDERED: GENTAMICIN SULF 80MG/2ML VIAL As Ordered ONE (06:49)
[2021-11-24] MEDS ORDERED: BUPIVACAINE HCL 0.25% 10ML VIAL As Ordered ONE (06:50)
[2021-11-24] MEDS ORDERED: HEPARIN SOD (PORCINE) 5000UNITS/ML 1ML VIAL/SYRINGE SQ ONE (06:55)
[2021-11-24] MEDS ORDERED: ceFAZolin SOD 2 GM in IV 1 EA IV ONE (07:00)
[2021-11-24] MEDS ORDERED: dexameTHASONE 4 MG/ML 1ML VIAL (J1100 PER 1MG) As Ordered ONE (07:23)
[2021-11-24] MEDS ORDERED: ROCURONIUM BROMIDE 50 MG/5 ML VIAL As Ordered ONE ×3 (07:23→09:11)
[2021-11-24] MEDS ORDERED: LIDOCAINE 2% 100MG/5ML SDV (FOR ANES.) As Ordered ONE (07:23)
[2021-11-24] MEDS ORDERED: ONDANSETRON 4MG 2ML VIAL As Ordered ONE (07:23)
[2021-11-24] MEDS ORDERED: propofoL 200 MG/20 ML VIAL As Ordered ONE (07:23)
[2021-11-24] MEDS ORDERED: fentaNYL 250 MCG/5 ML INJECTION As Ordered ONE (07:24)
[2021-11-24] MEDS ORDERED: MIDAZOLAM INJ 2MG/2ML VIAL (J2250 PER 1MG) As Ordered ONE (07:24)
[2021-11-24] MEDS ORDERED: LACRILUBE (AKWA TEARS) OPHTH OINT 3.5 GM As Ordered ONE (07:56)
[2021-11-24] MEDS ORDERED: ACETAMINOPHEN 1000MG 100ML IV BTL (OFIRMEV) (J0131 PER 10MG) As Ordered ONE (08:30)
[2021-11-24] MEDS ORDERED: diphenhydrAMINE 50MG/ML VIAL (J1200) As Ordered ONE (08:30)
[2021-11-24] MEDS ORDERED: HYDROmorphone HCL 2MG/ML 1ML VIAL As Ordered ONE (08:30)
[2021-11-24] MEDS ORDERED: SUGAMMADEX SODIUM 500 MG/5 ML VIAL (BRIDION) As Ordered ONE (09:20)
[2021-11-24] MEDS ORDERED: ePHEDrine SULFATE 25 MG/5 ML(5MG/ML) SYRINGE As Ordered ONE (10:34)
[2021-11-24] MEDS ORDERED: ONDANSETRON 4MG 2ML VIAL IV PRN ×2 (11:20→13:00)
[2021-11-24] MEDS ORDERED: oxyCODONE 5MG TAB PO PRN (11:20)
[2021-11-24] MEDS ORDERED: MORPHINE 2 MG/ML 1ML VIAL IV PRN (11:20)
[2021-11-24] MEDS ORDERED: fentaNYL 100 MCG/2 ML INJECTION IV PRN (11:20)
[2021-11-24] MEDS ORDERED: traMADol 50 MG TAB PO PRN (13:00)
[2021-11-24] MEDS ORDERED: ACETAMINOPHEN TAB 650MG DOSE (2X325MG) PO PRN (13:00)
[2021-11-24] MEDS: LR 1,000 ML IV SCH ×2 (14:42→20:14)
[2021-11-24] MEDS: PERCOCET 5MG/325MG TAB PO PRN (15:38)
[2021-11-25 02:00] VITALS: BP 132/80
[2021-11-25 06:00] VITALS: BP 130/69
[2021-11-25 10:00] VITALS: BP 129/75
[2021-11-25] MEDS ORDERED: TRAM50TA2 PO (10:11)
[2021-11-25] MEDS ORDERED: diphenhydrAMINE 25MG CAP PO ONE (10:50)
[2021-11-25] MEDS: PERCOCET 5MG/325MG TAB PO PRN (13:59)
== END 2021-11-25 14:40 | disposition home or self-care (01) ==
LOC: M SDC 06:02 → M ED INP 06:03 → M MS5PR 14:20
PROVIDERS: ADMIT Plastic Surgery Surgery of the Hand; ATTEND Plastic Surgery Surgery of the Hand
DX: N62 Hypertrophy of breast (principal)
CPT/HCPCS: 19318; 81025; 88305; 96361; 96374; C9290; J0131; J0690; J1100; J1170; J1200; J1580; J1644; J2250; J2405; J3010